=== PATIENT | female | born 1970 | race Two or more races ===

== ENCOUNTER 2017-06-04 12:20 | Inpatient (IN) | payer OTHER ==
[2017-06-04 14:33] VITALS: BMI 30.9
--- NOTE | 2017-06-04 15:28 | HP ---
CIWA Score - CIWA Score Nausea/Vomitin Muscle Tremors: 2 Anxiety: 3 Agitation: 2 Paroxysmal Sweats: 2 Orientation: 0-Oriented Tacttile Disturbances: 1-Very Mild Itch/Numbness Auditory Disturbances: 0-None Visual Disturbances: 0-None Headache: 0-None Present CIWA-Ar Total Score: 13 Admission ROS BHS - HPI Chief Complaint: I need to stop drinking it is effecting my life. Allergies/Adverse Reactions: Allergies Allergy/AdvReac Type Severity Reaction Status Date / Time Penicillins AdvReac Rash Verified 06/04/17 15:34 penicillin Allergy Intermediate Rash Uncoded 06/04/17 15:34 History of Present Illness: Drinking heavy x 1yr and i need help. Exam Limitations: No Limitations - Ebola screening Have you traveled outside of the country in the last 21 days: No Have you had contact with anyone from an Ebola affected area: No Have you been sick,other than usual withdrawal symptoms: No Do you have a fever: No - Review of Systems Constitutional: Loss of Appetite, Malaise EENT: reports: No Symptoms Reported Respiratory: reports: No Symptoms reported Cardiac: reports: No Symptoms Reported GI: reports: Nausea, Indigestion, Abdominal cramping : reports: No Symptoms Reported Musculoskeletal: reports: No Symptoms Reported Integumentary: reports: No Symptoms Reported Neuro: reports: Tremors Endocrine: reports: No Symptoms Reported Hematology: reports: No Symptoms Reported Psychiatric: reports: Agitated, Anxious Other Systems: Reviewed and Negative Patient History - Patient Medical History Hx Anemia: No Hx Asthma: No Hx Chronic Obstructive Pulmonary Disease (COPD): No Hx Cancer: No Hx Cardiac Disorders: No Hx Congestive Heart Failure: No Hx Hypertension: No Hx Hypercholesterolemia: No Hx Pacemaker: No HX Cerebrovascular Accident: No Hx Seizures: No Hx Dementia: No Hx Diabetes: No Hx Gastrointestinal Disorders: No Hx Liver Disease: No Hx Genitourinary Disorders: No Hx Sexually Transmitted Disorders: No Hx Renal Disease (ESRD): No Hx Thyroid Disease: No Hx Human Immunodeficiency Virus (HIV): No Hx Hepatitis C: No Hx Depression: No Hx Suicide Attempt: No Hx Bipolar Disorder: No Hx Schizophrenia: No - Patient Surgical History Hx Section: Yes (x3) Anesthesia Reaction: No - PPD History Previous Implant?: Yes Documented Results: Negative w/o proof PPD to be Administered?: Yes - Reproductive History Patient is a Female of Child Bearing Age (11 -55 yrs old): Yes Last Menstrual Period: 04/13/17 Patient : No - Smoking Cessation Smoking history: Current every day smoker Have you smoked in the past 12 months: Yes Aproximately how many cigarettes per day: 8 Cigars Per Day: 0 Hx Chewing Tobacco Use: No Initiated information on smoking cessation: No 'Breaking Loose' booklet given: 06/04/17 - Substance & Tx. History Hx Alcohol Use: Yes Hx Substance Use: No Substance Use Type: Alcohol Hx Substance Use Treatment: Yes - Substances Abused Alcohol Route: Oral Frequency: Daily Amount used: scotch 1 pt /d Age of first use: 13 Date of Last Use: 06/03/17 Family Disease History - Family Disease History Family Disease History: Other: Sister (sz d/o ) Admission Physical Exam [facility] - Vital Signs Vital Signs: Vital Signs - 24 hr 06/04/17 14:22 Temperature 98.2 F Pulse Rate 67 Respiratory 18 Rate Blood Pressure 124/83 46 y/o f pt aox3 in nad, restless but cooperative with exam. - Physical General Appearance: Yes: Appropriately Dressed HEENTM: Yes: EOMI, Hearing grossly Normal, Normocephalic, Normal Voice, PHYLLIS Respiratory: Yes: Chest Non-Tender, Lungs Clear, Normal Breath Sounds, No Respiratory Distress Neck: Yes: Supple, Trachea in good position Breast: Yes: Breast Exam Deferred Cardiology: Yes: Regular Rhythm, Regular Rate, S1, S2 Abdominal: Yes: Non Tender, Soft, Increased Bowel Sounds (obese) Genitourinary: Yes: Within Normal Limits Back: Yes: Decreased Range of Motion Musculoskeletal: Yes: Back pain Extremities: Yes: Tremors Neurological: Yes: digital media manager II-XII NML intact, Fully Oriented, Alert, Motor Strength 5/5, Normal Response Integumentary: Yes: Moist Lymphatic: Yes: Within Normal Limits - Diagnostic (1) Chronic alcoholism Current Visit: Yes Status: Chronic (2) Nicotine dependence, cigarettes, uncomplicated Current Visit: Yes Status: Chronic Cleared for Admission [facility] - Detox or Rehab [facility] Level of Care: Medically Managed Detox Regimen/Protocol: Librium [facility] Breath Alcohol Content Breath Alcohol Content: 0 Urine Pregancy Test - Result Urine Test Results: Negative- NO Line Present Urine Drug Screen - Results Drug Screen Negative: Yes
[2017-06-04] MEDS ORDERED: hydrOXYzine PAMOATE 25 MG CAPSULE (FP) PO PRN (15:47)
[2017-06-04] MEDS ORDERED: MAG HYDROX/AL HYDROX/SIMETH 30 ML UNIT-DOSE CUP PO PRN (15:47)
[2017-06-04] MEDS ORDERED: IBUPROFEN 400 MG TABLET (FP) PO PRN (15:47)
[2017-06-04] MEDS ORDERED: NICOTINE POLACRILEX 2 MG GUM BC PRN (15:47)
[2017-06-04] MEDS ORDERED: MENTHOL/PHENOL 1 EACH UD MM PRN (15:47)
[2017-06-04] MEDS ORDERED: P-EPHED 60MG/TRIPROLIDI 2.5MG TABLET PO PRN (15:47)
[2017-06-04] MEDS ORDERED: guaiFENesin/D-METHORPHAN HB 10 ML UNIT-DOSE CUPS PO PRN (15:47)
[2017-06-04] MEDS ORDERED: chlordiazePOXIDE HCL 25 MG CAPSULE PO PRN (15:47)
[2017-06-04] MEDS ORDERED: MAGNESIUM CITRATE 300 ML BOTTLE PO PRN (15:47)
[2017-06-04] MEDS ORDERED: MAGNESIUM HYDROX 2400MG/30ML ORAL SUSPENSION 30 ML CUP PO PRN (15:47)
[2017-06-04] MEDS ORDERED: LOPERAMIDE HCL 2 MG CAPSULE PO PRN (15:47)
[2017-06-04] MEDS ORDERED: ACETAMINOPHEN 325 MG TABLET (FP) PO PRN (15:47)
[2017-06-04] MEDS: chlordiazePOXIDE HCL 25 MG CAPSULE PO SCH ×2 (18:27→22:50)
[2017-06-04] MEDS: THIAMINE HCL 100 MG TABLET (FP) PO SCH (22:50)
[2017-06-05] MEDS: chlordiazePOXIDE HCL 25 MG CAPSULE PO SCH ×3 (05:45→17:19)
[2017-06-05 10:30] LABS: HEMATOCRIT 37.7 % (32.4-45.2); HEMOGLOBIN 12.6 GM/dL (10.7-15.3); MCH 29.6 pg (25.7-33.7); MCHC 33.4 g/dl (32.0-36.0); MEAN CELL VOLUME 88.6 fl (80-96); MEAN PLT VOLUME 9.5 fl (7.5-11.1); PLATELET COUNT 126 K/MM3 (134-434); RBC 4.25 M/mm3 (3.60-5.2); RDW 17.3 % (11.6-15.6); WHITE BLOOD COUNT 4.3 K/mm3 (4.0-10.0)
[2017-06-05 10:45] LABS: CHLORIDE 105 mmol/L (98-107); POTASSIUM 3.7 mmol/L (3.5-5.1); SODIUM 138 mmol/L (136-145)
[2017-06-05 11:00] LABS: ALBUMIN 2.9 g/dl (3.4-5.0); ALK PHOS 66 U/L (45-117); ANION GAP 8 (8-16); BILIRUBIN,TOTAL 0.7 mg/dL (0.2-1.0); BLOOD UREA NITROGEN 12 mg/dL (7-18); CALCIUM 7.9 mg/dL (8.5-10.1); CO2 25 mmol/L (21-32); CREATININE 0.6 mg/dL (0.55-1.02); GLUCOSE,RANDOM 79 mg/dL (74-106); SGOT/AST 17 U/L (15-37); SGPT/ALT 16 U/L (12-78); TOT PROT 6.2 g/dl (6.4-8.2)
[2017-06-05] MEDS: PRENATAL VITAMINS W/ FOLIC ACID TABLET (FP) PO SCH (11:02)
[2017-06-05] MEDS: NICOTINE 14 MG/24 HOURS TOPICAL PATCH TD SCH (11:02)
--- NOTE | 2017-06-05 20:19 | PN ---
[facility] CIWA - CIWA Score Nausea/Vomitin Muscle Tremors: 3 Anxiety: 3 Agitation: 3 Paroxysmal Sweats: 2 Orientation: 0-Oriented Tacttile Disturbances: 0-None Auditory Disturbances: 0-None Visual Disturbances: 0-None Headache: 0-None Present CIWA-Ar Total Score: 14 S Progress Note (SOAP) Subjective: shakes tremors Objective: 06/05/17 20:18 A & O x 3 ambulates steadily Laboratory Last Values WBC 4.3 K/mm3 (4.0-10.0) 06/05/17 08:00 RBC 4.25 M/mm3 (3.60-5.2) 06/05/17 08:00 Hgb 12.6 GM/dL (10.7-15.3) 06/05/17 08:00 Hct 37.7 % (32.4-45.2) 06/05/17 08:00 MCV 88.6 fl (80-96) 06/05/17 08:00 MCH 29.6 pg (25.7-33.7) 06/05/17 08:00 MCHC 33.4 g/dl (32.0-36.0) 06/05/17 08:00 RDW 17.3 % (11.6-15.6) H 06/05/17 08:00 Plt Count 126 K/MM3 (134-434) L 06/05/17 08:00 MPV 9.5 fl (7.5-11.1) 06/05/17 08:00 Sodium 138 mmol/L (136-145) 06/05/17 08:00 Potassium 3.7 mmol/L (3.5-5.1) 06/05/17 08:00 Chloride 105 mmol/L (98-107) 06/05/17 08:00 Carbon Dioxide 25 mmol/L (21-32) 06/05/17 08:00 Anion Gap 8 (8-16) 06/05/17 08:00 BUN 12 mg/dL (7-18) 06/05/17 08:00 Creatinine 0.6 mg/dL (0.55-1.02) 06/05/17 08:00 Creat Clearance w eGFR > 60 (>60) 06/05/17 08:00 Random Glucose 79 mg/dL (74-106) 06/05/17 08:00 Calcium 7.9 mg/dL (8.5-10.1) L 06/05/17 08:00 Total Bilirubin 0.7 mg/dL (0.2-1.0) 06/05/17 08:00 AST 17 U/L (15-37) 06/05/17 08:00 ALT 16 U/L (12-78) 06/05/17 08:00 Alkaline Phosphatase 66 U/L (45-117) 06/05/17 08:00 Total Protein 6.2 g/dl (6.4-8.2) L 06/05/17 08:00 Albumin 2.9 g/dl (3.4-5.0) L 06/05/17 08:00 RPR Titer Nonreactive (NONREACTIVE) 06/05/17 08:00 HIV 1&2 Antibody Screen Negative 06/05/17 08:00 HIV P24 Antigen Negative 06/05/17 08:00 labs noted Assessment: 06/05/17 20:19 withdrawal sx Plan: continue detox
[2017-06-06] MEDS: THIAMINE HCL 100 MG TABLET (FP) PO SCH ×2 (00:05→22:55)
[2017-06-06] MEDS: chlordiazePOXIDE HCL 25 MG CAPSULE PO SCH ×3 (00:05→11:01)
[2017-06-06] MEDS: PRENATAL VITAMINS W/ FOLIC ACID TABLET (FP) PO SCH (11:01)
[2017-06-06] MEDS: NICOTINE 14 MG/24 HOURS TOPICAL PATCH TD SCH (11:03)
--- NOTE | 2017-06-06 13:21 | PN ---
S CIWA - CIWA Score Nausea/Vomitin-No Nausea/No Vomiting Muscle Tremors: 3 Anxiety: 3 Agitation: 3 Paroxysmal Sweats: 1-Minimal Palms Moist Orientation: 0-Oriented Tacttile Disturbances: 1-Very Mild Itch/Numbness Auditory Disturbances: 0-None Visual Disturbances: 0-None Headache: 1-Very Mild CIWA-Ar Total Score: 12 BHS Progress Note (SOAP) Subjective: tremor sweat restlessness anxiety Objective: 06/06/17 13:20 Vital Signs Temperature 97.7 F 06/06/17 10:00 Pulse Rate 66 06/06/17 10:00 Respiratory Rate 20 06/06/17 10:00 Blood Pressure 116/81 06/06/17 10:00 O2 Sat by Pulse Oximetry (%) Laboratory Last Values WBC 4.3 K/mm3 (4.0-10.0) 06/05/17 08:00 RBC 4.25 M/mm3 (3.60-5.2) 06/05/17 08:00 Hgb 12.6 GM/dL (10.7-15.3) 06/05/17 08:00 Hct 37.7 % (32.4-45.2) 06/05/17 08:00 MCV 88.6 fl (80-96) 06/05/17 08:00 MCH 29.6 pg (25.7-33.7) 06/05/17 08:00 MCHC 33.4 g/dl (32.0-36.0) 06/05/17 08:00 RDW 17.3 % (11.6-15.6) H 06/05/17 08:00 Plt Count 126 K/MM3 (134-434) L 06/05/17 08:00 MPV 9.5 fl (7.5-11.1) 06/05/17 08:00 Sodium 138 mmol/L (136-145) 06/05/17 08:00 Potassium 3.7 mmol/L (3.5-5.1) 06/05/17 08:00 Chloride 105 mmol/L (98-107) 06/05/17 08:00 Carbon Dioxide 25 mmol/L (21-32) 06/05/17 08:00 Anion Gap 8 (8-16) 06/05/17 08:00 BUN 12 mg/dL (7-18) 06/05/17 08:00 Creatinine 0.6 mg/dL (0.55-1.02) 06/05/17 08:00 Creat Clearance w eGFR > 60 (>60) 06/05/17 08:00 Random Glucose 79 mg/dL (74-106) 06/05/17 08:00 Calcium 7.9 mg/dL (8.5-10.1) L 06/05/17 08:00 Total Bilirubin 0.7 mg/dL (0.2-1.0) 06/05/17 08:00 AST 17 U/L (15-37) 06/05/17 08:00 ALT 16 U/L (12-78) 06/05/17 08:00 Alkaline Phosphatase 66 U/L (45-117) 06/05/17 08:00 Total Protein 6.2 g/dl (6.4-8.2) L 06/05/17 08:00 Albumin 2.9 g/dl (3.4-5.0) L 06/05/17 08:00 RPR Titer Nonreactive (NONREACTIVE) 06/05/17 08:00 HIV 1&2 Antibody Screen Negative 06/05/17 08:00 HIV P24 Antigen Negative 06/05/17 08:00 lab noted Assessment: 06/06/17 13:21 withdrawal sx Plan: continue detox
[2017-06-06] MEDS: chlordiazePOXIDE 5 MG CAPSULE PO SCH ×2 (17:52→22:55)
--- NOTE | 2017-06-06 20:38 | EKG ---
Test Reason : Blood Pressure : / mmHG Vent. Rate : 065 BPM Atrial Rate : 065 BPM P-R Int : 168 ms QRS Dur : 082 ms QT Int : 410 ms P-R-T Axes : 069 072 060 degrees QTc Int : 426 ms NORMAL SINUS RHYTHM NORMAL ECG NO PREVIOUS ECGS AVAILABLE Confirmed by MAGNO ELY MD ([id number]) on 06/06/2017 8:38:26 PM Referred By: Confirmed By:MAGNO ELY MD
[2017-06-07] MEDS: chlordiazePOXIDE 5 MG CAPSULE PO SCH ×2 (06:34→10:56)
--- NOTE | 2017-06-07 09:47 | PN ---
S Progress Note (SOAP) Subjective: alert oriented x 3 steady gait coherent less sweat no tremor tolerates food and fluid well Objective: 06/07/17 09:45 Vital Signs Temperature 96.7 F L 06/07/17 06:35 Pulse Rate 60 06/07/17 06:35 Respiratory Rate 16 06/07/17 06:35 Blood Pressure 103/63 06/07/17 06:35 O2 Sat by Pulse Oximetry (%) Laboratory Last Values WBC 4.3 K/mm3 (4.0-10.0) 06/05/17 08:00 RBC 4.25 M/mm3 (3.60-5.2) 06/05/17 08:00 Hgb 12.6 GM/dL (10.7-15.3) 06/05/17 08:00 Hct 37.7 % (32.4-45.2) 06/05/17 08:00 MCV 88.6 fl (80-96) 06/05/17 08:00 MCH 29.6 pg (25.7-33.7) 06/05/17 08:00 MCHC 33.4 g/dl (32.0-36.0) 06/05/17 08:00 RDW 17.3 % (11.6-15.6) H 06/05/17 08:00 Plt Count 126 K/MM3 (134-434) L 06/05/17 08:00 MPV 9.5 fl (7.5-11.1) 06/05/17 08:00 Sodium 138 mmol/L (136-145) 06/05/17 08:00 Potassium 3.7 mmol/L (3.5-5.1) 06/05/17 08:00 Chloride 105 mmol/L (98-107) 06/05/17 08:00 Carbon Dioxide 25 mmol/L (21-32) 06/05/17 08:00 Anion Gap 8 (8-16) 06/05/17 08:00 BUN 12 mg/dL (7-18) 06/05/17 08:00 Creatinine 0.6 mg/dL (0.55-1.02) 06/05/17 08:00 Creat Clearance w eGFR > 60 (>60) 06/05/17 08:00 Random Glucose 79 mg/dL (74-106) 06/05/17 08:00 Calcium 7.9 mg/dL (8.5-10.1) L 06/05/17 08:00 Total Bilirubin 0.7 mg/dL (0.2-1.0) 06/05/17 08:00 AST 17 U/L (15-37) 06/05/17 08:00 ALT 16 U/L (12-78) 06/05/17 08:00 Alkaline Phosphatase 66 U/L (45-117) 06/05/17 08:00 Total Protein 6.2 g/dl (6.4-8.2) L 06/05/17 08:00 Albumin 2.9 g/dl (3.4-5.0) L 06/05/17 08:00 RPR Titer Nonreactive (NONREACTIVE) 06/05/17 08:00 HIV 1&2 Antibody Screen Negative 06/05/17 08:00 HIV P24 Antigen Negative 06/05/17 08:00 lab noted Assessment: 06/07/17 09:46 mild withdrawal sx 06/07/17 09:47 Plan: medically supervised detox
[2017-06-07] MEDS: NICOTINE 14 MG/24 HOURS TOPICAL PATCH TD SCH (10:56)
[2017-06-07] MEDS: PRENATAL VITAMINS W/ FOLIC ACID TABLET (FP) PO SCH (10:56)
[2017-06-07 14:58] VITALS: BP 91/61; PULSE 79; TEMP 96.9
[2017-06-07] MEDS ORDERED: chlordiazePOXIDE HCL 10 MG CAPSULE PO SCH (17:00)
--- NOTE | 2017-06-07 17:12 | PN ---
[facility] Progress Note Note: CALLED TO INFORM OF PATIENT WHO REQUESTS TO LEAVE NOW, STATING SHE HAS A BED AT THE LONG TERM TODAY. PT WAS ALSO SEEN AND SPOKEN TO BY HER COUNSELOR,MS STEARNS. ALERT O X 3. NAD.
--- NOTE | 2017-06-07 17:26 | DS ---
[facility] Detox Discharge Summary Admission Date: 06/04/17 Discharge Date: 06/07/17 - History Present History: Alcohol Dependence Additional Comments: PT REQUEST TO LEAVE TODAY. Pertinent Past History: SEE DX BELOW - Physical Exam Results Vital Signs: Vital Signs Temperature 96.9 F L 06/07/17 14:57 Pulse Rate 79 06/07/17 14:57 Respiratory Rate 18 06/07/17 14:57 Blood Pressure 91/61 06/07/17 14:57 O2 Sat by Pulse Oximetry (%) Pertinent Admission Physical Exam Findings: WITHDRAWAL SX Laboratory Last Values WBC 4.3 K/mm3 (4.0-10.0) 06/05/17 08:00 RBC 4.25 M/mm3 (3.60-5.2) 06/05/17 08:00 Hgb 12.6 GM/dL (10.7-15.3) 06/05/17 08:00 Hct 37.7 % (32.4-45.2) 06/05/17 08:00 MCV 88.6 fl (80-96) 06/05/17 08:00 MCH 29.6 pg (25.7-33.7) 06/05/17 08:00 MCHC 33.4 g/dl (32.0-36.0) 06/05/17 08:00 RDW 17.3 % (11.6-15.6) H 06/05/17 08:00 Plt Count 126 K/MM3 (134-434) L 06/05/17 08:00 MPV 9.5 fl (7.5-11.1) 06/05/17 08:00 Sodium 138 mmol/L (136-145) 06/05/17 08:00 Potassium 3.7 mmol/L (3.5-5.1) 06/05/17 08:00 Chloride 105 mmol/L (98-107) 06/05/17 08:00 Carbon Dioxide 25 mmol/L (21-32) 06/05/17 08:00 Anion Gap 8 (8-16) 06/05/17 08:00 BUN 12 mg/dL (7-18) 06/05/17 08:00 Creatinine 0.6 mg/dL (0.55-1.02) 06/05/17 08:00 Creat Clearance w eGFR > 60 (>60) 06/05/17 08:00 Random Glucose 79 mg/dL (74-106) 06/05/17 08:00 Calcium 7.9 mg/dL (8.5-10.1) L 06/05/17 08:00 Total Bilirubin 0.7 mg/dL (0.2-1.0) 06/05/17 08:00 AST 17 U/L (15-37) 06/05/17 08:00 ALT 16 U/L (12-78) 06/05/17 08:00 Alkaline Phosphatase 66 U/L (45-117) 06/05/17 08:00 Total Protein 6.2 g/dl (6.4-8.2) L 06/05/17 08:00 Albumin 2.9 g/dl (3.4-5.0) L 06/05/17 08:00 RPR Titer Nonreactive (NONREACTIVE) 06/05/17 08:00 HIV 1&2 Antibody Screen Negative 06/05/17 08:00 HIV P24 Antigen Negative 06/05/17 08:00 - Treatment Hospital Course: Discharged Condition Good - Medication Discharge Medications: Ambulatory Orders NK [No Known Home Medication] 06/04/17 - Diagnosis (1) Uncomplicated alcohol dependence Current Visit: Yes Status: Acute (2) Nicotine dependence, cigarettes, uncomplicated Current Visit: Yes Status: Chronic - AMA Did Patient Leave Against Medical Advice: Yes (AMA)
== END 2017-06-07 17:25 | disposition left against medical advice (07) | DRG 770 ==
LOC: YASAS 12:20 → Y6N 16:26
PROVIDERS: ADMIT Internal Medicine; ATTEND Internal Medicine
PROC: HZ2ZZZZ Detoxification Services for Substance Abuse Treatment (ICD-10-PCS; principal; 2017-06-04)
DX: F10.230 Alcohol dependence with withdrawal, uncomplicated (principal); F17.210 Nicotine dependence, cigarettes, uncomplicated; Z88.0 Allergy status to penicillin
CPT/HCPCS: 36415; 71046-TC-FY; 80053; 85027; 86593; 87389; 93005; 93010